=== PATIENT | female | born 1985 | race Caucasian/White ===

== ENCOUNTER 2019-01-30 09:58 | Day surgery (SDC) | payer OTHER ==
[~2019-01-30] VITALS: Ht 152.4 cm; Wt 86.6 kg
[~2019-01-30 09:58] MED LIST: ATOR40TA75 PO; EFFE150C2 PO; HYDR25TAB PO; LEVO50TA5 PO; LR 1,000 ML IV ONE; QC F0.52 PO; XANA2TAB2 PO
[2019-01-30 10:54] LABS: URINE PREG TEST NEGATIVE (NEGATIVE)
[2019-01-30] MEDS ORDERED: PROPOFOL 200 MG/20 ML VIAL As Ordered ONE (12:03)
[2019-01-30] MEDS ORDERED: LIDOCAINE 2% INJ 100 MG/5 ML SDV (FOR ANES.) As Ordered ONE (12:03)
[2019-01-30] MEDS ORDERED: fentaNYL 100 MCG/2 ML INJECTION (J3010) As Ordered ONE (12:03)
[2019-01-30] MEDS ORDERED: MIDAZOLAM INJ 2 MG/2 ML VIAL (J2250) As Ordered ONE (12:03)
[2019-01-30] MEDS ORDERED: ONDANSETRON 4MG/2ML VIAL (J2405) As Ordered ONE (12:34)
[2019-01-30] MEDS ORDERED: KETOROLAC 60 MG/2 ML VIAL (J1885) As Ordered ONE (12:34)
[2019-01-30] MEDS ORDERED: dexameTHASONE 4 MG/ML 1ML VIAL (J1100) As Ordered ONE (12:34)
[2019-01-30] MEDS ORDERED: ONDANSETRON 4MG/2ML VIAL (J2405) IV PRN (13:00)
[2019-01-30] MEDS ORDERED: LR 1,000 ML IV SCH ×2 (13:00→14:00)
[2019-01-30] MEDS ORDERED: METOCLOPRAMIDE INJ 10MG/2ML VIAL (J2765) IV PRN (13:00)
[2019-01-30] MEDS: fentaNYL 100 MCG/2 ML INJECTION (J3010) IV PRN ×4 (13:10→13:25)
[2019-01-30] MEDS: PERCOCET 5MG/325MG TAB PO PRN ×2 (13:10→13:40)
[2019-01-30] MEDS: MEPERIDINE INJ 25 MG/ML VIAL (J2175) IV PRN ×2 (13:50→13:55)
[2019-01-30] MEDS ORDERED: NORCO, ANEXSIA 5/325MG TABLET (HYDROcodone/ACETAMINOPHEN) PO PRN (14:00)
[2019-01-30] MEDS ORDERED: IBUPROFEN 600 MG TAB PO PRN (14:00)
[2019-01-30 15:40] VITALS: BP 126/83
== END 2019-01-30 15:50 | disposition home or self-care (01) ==
LOC: M SDC 09:58
PROVIDERS: ATTEND Obstetrics & Gynecology
DX: R10.2 Pelvic and perineal pain (principal); N93.9 Abnormal uterine and vaginal bleeding, unspecified; E03.9 Hypothyroidism, unspecified; F41.9 Anxiety disorder, unspecified; F32.9 Major depressive disorder, single episode, unspecified; Z79.899 Other long term (current) drug therapy; F17.210 Nicotine dependence, cigarettes, uncomplicated
CPT/HCPCS: 58563; 84703; 88305; J1100; J1885; J2175; J2250; J2405; J3010

== ENCOUNTER → 2019-06-11 | Outpatient (REF) | payer OTHER ==
[~2019-06-11] MED LIST changes: -LR 1,000 ML IV ONE
[2019-06-11 17:30] LABS: APPEARANCE, URINE CLEAR (CLEAR); BACTERIA, URINE AUTO NEGATIVE (NEGATIVE); BILIRUBIN, URINE AUTO NEGATIVE (NEGATIVE); BLOOD, URINE BLOOD NEGATIVE (NEGATIVE); COLOR, URINE STRAW (YELLOW); GLUCOSE, URINE (UA) AUTO NEGATIVE (NEGATIVE); KETONE, URINE AUTO NEGATIVE (NEGATIVE); LEUKOCYTE ESTERASE, URINE AUTO NEGATIVE (NEGATIVE); NITRITE, URINE AUTO NEGATIVE (NEGATIVE); PROTEIN, URINE AUTO NEGATIVE (NEGATIVE); RBC, URINE AUTO 0 /HPF (0-3); SPECIFIC GRAVITY URINE AUTO 1.004 (1.002-1.035); SQUAMOUS EPITHELIAL CELL UR AU 1 /HPF (0-6); UROBILINOGEN, URINE AUTO 0.2 mg/dL (0.0-2.0); WBC, URINE AUTO 0 /HPF (0-3)
== END ==
LOC: M LAB REF 16:51
PROVIDERS: ATTEND Obstetrics & Gynecology
DX: N39.0 Urinary tract infection, site not specified (principal)

== ENCOUNTER → 2019-10-20 | Outpatient (CLI) | payer OTHER ==
[~2019-10-20] MED LIST changes: +ALPR1TAB3 PO; +VENL75CA47 PO
== END ==
LOC: M LABSMTC 11:07
PROVIDERS: ATTEND Anesthesiology
DX: Z01.818 Encounter for other preprocedural examination (principal); Z11.59 Encounter for screening for other viral diseases
CPT/HCPCS: C8903; U0003

== ENCOUNTER 2019-10-23 08:51 | Day surgery (SDC) | payer OTHER ==
[~2019-10-23] VITALS: Ht 152.4 cm; Wt 106.1 kg
[~2019-10-23 08:51] MED LIST changes: -ALPR1TAB3 PO; +LR 1,000 ML IV ONE; -VENL75CA47 PO; +ceFAZolin SOD 2 GM in IV 1 EA IV ONE
[2019-10-23] MEDS ORDERED: LIDOCAINE 2% 100MG/5ML SDV (FOR ANES.) As Ordered ONE (08:56)
[2019-10-23] MEDS ORDERED: fentaNYL 250 MCG/5 ML INJECTION (J3010) As Ordered ONE (08:56)
[2019-10-23] MEDS ORDERED: propofoL 200 MG/20 ML VIAL As Ordered ONE (08:56)
[2019-10-23] MEDS ORDERED: SUCCINYLCHOLINE 100 MG/5 ML SYRINGE (J0330) As Ordered ONE (08:56)
[2019-10-23] MEDS ORDERED: ROCURONIUM BROMIDE 50 MG/5 ML VIAL As Ordered ONE ×3 (08:56→11:57)
[2019-10-23] MEDS ORDERED: MIDAZOLAM INJ 2MG/2ML VIAL (J2250 PER 1MG) As Ordered ONE (08:57)
[2019-10-23 09:59] LABS: HEMATOCRIT 41.7 % (36.0-47.0); HEMOGLOBIN 12.8 g/dl (12.0-15.5); MEAN CORPUSCULAR HEMOGLOBIN 24.6 pg (27.0-33.0); MEAN CORPUSCULAR HGB CONC 30.7 g/dl (32.0-36.5); PLATELET COUNT, AUTOMATED 418 10^3/uL (150-450); RED BLOOD COUNT 5.21 10^6/uL (4.00-5.40); WHITE BLOOD COUNT 13.4 10^3/uL (4.0-10.0)
[2019-10-23] MEDS ORDERED: PHENAZOPYRIDINE 100 MG TAB PO ONE (10:00)
[2019-10-23 10:36] LABS: HCG, SERUM QUALITATIVE NEGATIVE (NEGATIVE)
[2019-10-23] MEDS ORDERED: VECURONIUM BROMIDE 10MG VIAL As Ordered ONE (10:42)
[2019-10-23] MEDS ORDERED: ALBUTEROL 6.7GM INHALER **FOR ANES. CART/OMNICELL ONLY As Ordered ONE (11:21)
[2019-10-23] MEDS ORDERED: dexameTHASONE 4 MG/ML 1ML VIAL (J1100 PER 1MG) As Ordered ONE (11:48)
[2019-10-23] MEDS ORDERED: ACETAMINOPHEN 1000MG 100ML IV BTL (OFIRMEV) (J0131 PER 10MG) As Ordered ONE (11:48)
[2019-10-23] MEDS ORDERED: METOCLOPRAMIDE INJ 10MG/2ML VIAL (J2765 PER 1) As Ordered ONE (11:48)
[2019-10-23] MEDS ORDERED: ONDANSETRON 4MG/2ML VIAL As Ordered ONE (11:48)
[2019-10-23] MEDS ORDERED: KETOROLAC 60 MG/2 ML VIAL As Ordered ONE (11:48)
[2019-10-23] MEDS ORDERED: HYDROmorphone HCL 2 MG/ML 1ML VIAL (J1170) As Ordered ONE (11:49)
[2019-10-23] MEDS ORDERED: SUGAMMADEX SODIUM 500 MG/5 ML VIAL (BRIDION) As Ordered ONE (12:12)
[2019-10-23] MEDS ORDERED: fentaNYL 100 MCG/2 ML INJECTION (J3010) As Ordered ONE ×2 (12:19→13:02)
[2019-10-23] MEDS: fentaNYL 100 MCG/2 ML INJECTION (J3010) IV PRN ×4 (13:05→13:20)
[2019-10-23] MEDS ORDERED: oxyCODONE 5MG TAB PO PRN (13:15)
[2019-10-23] MEDS ORDERED: HYDROMORPHONE HCL 0.5 MG/ 0.5 ML SYRINGE (J1170 PER 1) IV PRN (13:15)
[2019-10-23] MEDS ORDERED: NS 1,000 ML IV SCH (13:15)
[2019-10-23] MEDS ORDERED: EPIDURAL/PCA KEYS XX PRN (13:15)
[2019-10-23] MEDS ORDERED: METOCLOPRAMIDE INJ 10MG/2ML VIAL (J2765 PER 1) IV PRN (13:15)
[2019-10-23] MEDS ORDERED: NALBUPHINE HCL 10 MG/ML AMP (J2300) IV PRN (13:15)
[2019-10-23] MEDS ORDERED: NALOXONE INJ 0.4MG/1ML VIAL (J2310 PER 1MG) IV PRN (13:15)
[2019-10-23] MEDS ORDERED: MORPHINE 1MG/ML IN 0.9% NACL 100ML IV BAG IV PRN (13:15)
[2019-10-23] MEDS ORDERED: diphenhydrAMINE 50MG/ML VIAL (J1200) IV PRN (13:15)
[2019-10-23] MEDS ORDERED: LR 1,000 ML IV SCH (13:15)
[2019-10-23] MEDS ORDERED: ONDANSETRON 4MG/2ML VIAL IV PRN (13:15)
[2019-10-23 15:07] VITALS: BP 111/59
[2019-10-23] MEDS ORDERED: ALPR1TAB3 PO (15:35)
[2019-10-23] MEDS ORDERED: VENL75CA47 PO (15:35)
[2019-10-23 15:44] VITALS: BP 112/60
[2019-10-23 16:44] VITALS: BP 111/60
[2019-10-23] MEDS: LR 1,000 ML IV SCH ×2 (17:25→20:24)
[2019-10-23 17:44] VITALS: BP 112/61
[2019-10-23 18:40] VITALS: BP 133/74
[2019-10-23 20:00] VITALS: BP 129/74
[2019-10-23] MEDS ORDERED: IBUPROFEN 600 MG TAB PO PRN (20:00)
[2019-10-23] MEDS: ALPRAZolam 0.5 MG TAB PO SCH (20:23)
[2019-10-23] MEDS ORDERED: ATORVASTATIN 20 MG TAB PO SCH (21:00)
[2019-10-23] MEDS ORDERED: VENLAFAXINE **XR** 75MG CAPSULE PO SCH (21:00)
[2019-10-23] MEDS ORDERED: LEVOTHYROXINE 50MCG TABLET (0.05MG) PO SCH (21:00)
[2019-10-24 02:00] VITALS: BP_SYST 127; BP_SYST 152; BP_DIAS 68; BP_DIAS 86
[2019-10-24] MEDS: LR 1,000 ML IV SCH (03:20)
[2019-10-24 06:00] VITALS: BP 130/74
[2019-10-24] MEDS ORDERED: LEVOTHYROXINE 50MCG TABLET (0.05MG) PO SCH (06:00)
[2019-10-24] MEDS ORDERED: NORCO, ANEXSIA 5/325MG TABLET (HYDROcodone/ACETAMINOPHEN) PO PRN (06:00)
[2019-10-24 07:01] LABS: HEMATOCRIT 36.4 % (36.0-47.0); HEMOGLOBIN 11.3 g/dl (12.0-15.5); MEAN CORPUSCULAR HEMOGLOBIN 25.2 pg (27.0-33.0); MEAN CORPUSCULAR VOLUME 81.3 fl (80.0-96.0); PLATELET COUNT, AUTOMATED 403 10^3/uL (150-450); RED BLOOD COUNT 4.48 10^6/uL (4.00-5.40); WHITE BLOOD COUNT 20.3 10^3/uL (4.0-10.0)
[2019-10-24] MEDS: ALPRAZolam 0.5 MG TAB PO SCH (08:23)
[2019-10-24] MEDS ORDERED: hydroCHLOROthiazide 25 MG TAB PO SCH (09:00)
--- NOTE | 2019-10-28 14:18 | RO ---
DATE OF PROCEDURE: 10/23/2019 PREOPERATIVE DIAGNOSIS: Pain, bleeding and failed ablation. POSTOPERATIVE DIAGNOSIS: Pain, bleeding, and failed ablation. 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 PROCEDURE: Total abdominal hysterectomy with bilateral salpingectomy. Patient had previous tubal ligation, so of course there is only nubs of tubes left. SURGEON: Dr. Shaniak Up [employer] SUPERVISOR: Agnieszka Albright ANESTHESIA: General endotracheal anesthesia. SPECIMENS: Uterus and tubes, and of course cervix which is part of the uterus. DESCRIPTION OF PROCEDURE: Carola was brought to the operating room where sufficient general endotracheal anesthesia was induced supine. Without us even starting the case she already end tidal pressures of 40. She did not tolerate Trendelenburg despite efforts with bronchodilators, other efforts, and we had not even started the case. I had talked to her about her anatomical congenital anomalies and likelihood that these would create difficulty and so she was consented for open if that became necessary. We had the choice of either wake the patient up and not do the case because she was not tolerating anesthesia or go ahead and convert to open because it certainly was not an option under these circumstances to insufflate the patient and keep her in Trendelenburg for the amount of time likely for normal robotic, much less one with the number of anomalies she was likely at that point that we suspected she had. As a result, a decision was made to convert to open. She had previous vertical from her sections and from some of her reconstructive surgeries and we decided to go ahead and use that because we were concerned that if we did a Pfannenstiel and we were constantly pushing up on the pannus that this too would create more pressure on the chest and again the patient was suboptimally tolerating anesthesia as it was. With this in mind, we went ahead and placed a Posada. I had to place it. The nurse in the room was not able to identify and place a Posada for her. Again, she has anatomical changes and the urethra is considerably anterior to where expected due to where her vaginal orifice is, but a lot of this is because of the reconstruction and the fact that she has a reconstructed vagina. Hence, the previous C-sections and that sort of thing. So her urethra is anterior, but then has to bend posterior and anterior, again, to come around the symphysis, but we did have Pyridium in and we had good return from the Posada when we were just palpating vaginally so that we could guide that urethra as that Posada and not just try to shove it through that urethra because of the angle that it turns. With the Posada placed, I changed gloves and we went ahead and worked up top. Again, she had a vertical incision from her previous surgeries and we were concerned about the amount of pressure we would have to place on the pannus during the case and at this point we were not sure how protracted it would be due to scar tissue, so we went ahead and reused her previous vertical scar. We dissected through the subcutaneous tissues to the level of the rectus fascia and then very carefully dissected through this expecting quite a bit of scarring. She definitely had scarring in the fascia itself and in the peritoneum, but not that much in the peritoneal cavity as feared, certainly some, but there was no bowel stuck right behind the peritoneum. We did go through millimeter by millimeter. I was not able to go through bluntly because she has too much scar tissue, but using the scalpel we just went through very carefully and using the Kochers to elevate the tissues away from the underlying tissues as much as possible. There was omentum that was free immediately beyond the area that we went through and then we were able to of course carefully extend that using the scissors. We were careful inferiorly because there was some scar tissue over the bladder as might be expected, but not as much as feared. We then very carefully tried to maneuver the patient. We packed the bowel away. We did not want to place her in Trendelenburg again because she just was not tolerating that, so we pulled up the uterus using a single tooth tenaculum after I had manually elevated it and identified the stumps of the tubes remaining after previous tubal ligation and normal ovaries. We used long Kellys in the lateral aspects of the uterus and then with Mcclain clamps came over the utero-ovarian suspensory ligaments and the remaining pedicle of the tubes and we used #0 Vicryl sutures throughout this portion of the case, so we clamped those pedicles with Mcclain, cut them, and then tied them with #0 Vicryl suture. We then carefully worked through the broad ligament and over the anterior aspect of the lower uterine segment. There was considerable scarring from her previous C-sections that all had to be dissected sharply, but there did not appear to be any evidence of injury to the bladder and again we had Pyridium for the patient so that we would clearly have a good reason to know. Then we very tight to the uterus using Artem clamps carefully worked our way through the uterine vasculature to the level of the ureterosacral ligaments which were carefully identified, clamped and transected and this was when we did the colpotomy at this level. We tied off those pedicles carefully and completed the colpotomy around the base of the cervix leaving as much of the vagina behind as possible because she had had a reconstructed vagina and it was quite fragile, so we were careful to work down to it rather than trying to pull on it, and carefully close the angles with #0 Vicryl, held them and that of course incorporated the uterosacrals and then closed the mid portion of the vagina with [id number] because that was all that was left. Again, patient has a diminished vaginal caliber after the reconstruction. We then irrigated the pelvis carefully with good hemostasis, removed all packing, etc. Then, did a mask closure using #2-0 PDS on the loop and then for the deeper tissues used the 1 chromic on the turbo needle and then hema for the skin with good approximation and hemostasis at each layer. Again, no evidence of injury of ureters, bladder or of bowel. The procedure was then ended with dry sterile dressing placed. Estimated blood loss for the procedure was about 100 mL. Fluid replacement was crystalloid. Complications: None, other than the patient's initial inability to tolerate the anesthesia and thus the decision to convert to a safer procedure for her, which resulted in better aeration for the case and a shorter case, less time that she needed to tolerate anesthesia. But the surgery itself since we started open, that part was uncomplicated. Condition and Disposition: As already noted, she did not tolerate it well. She did not tolerate anesthesia well at all, but she did manage to tolerate the anesthesia and did not have any worsening during the case itself and was recovering in the recovery room in stable condition.
== END 2019-10-24 09:35 | disposition home or self-care (01) ==
LOC: M SDC 08:51 → M MS5PR 14:00 → M SDC 10-24 09:35
PROVIDERS: ATTEND Obstetrics & Gynecology
DX: R10.2 Pelvic and perineal pain (principal); N92.0 Excessive and frequent menstruation with regular cycle; N72 Inflammatory disease of cervix uteri; D25.9 Leiomyoma of uterus, unspecified; E03.9 Hypothyroidism, unspecified; E78.5 Hyperlipidemia, unspecified; F17.218 Nicotine dependence, cigarettes, with other nicotine-induced disorders; F41.9 Anxiety disorder, unspecified; F32.9 Major depressive disorder, single episode, unspecified; Z79.899 Other long term (current) drug therapy; Z88.5 Allergy status to narcotic agent
CPT/HCPCS: 36415; 58150; 84703; 85027; 86850; 86900; 86901; 88307; 96360; 96361; J0131; J0330; J0690; J1100; J1170; J1885; J2250; J2405; J2765; J3010

== ENCOUNTER 2021-04-14 19:37 | Emergency (ER) | payer OTHER ==
[~2021-04-14] VITALS: Ht 152.4 cm; Wt 105.9 kg
[~2021-04-14 19:37] MED LIST changes: +ALPR1TAB3 PO; +HYDR-3490 PO; -HYDR25TAB PO; -LR 1,000 ML IV ONE; +VENL75CA47 PO; -ceFAZolin SOD 2 GM in IV 1 EA IV ONE
[2021-04-14 19:38] VITALS: BP 159/75
[2021-04-14] MEDS ORDERED: VENL150C43 (19:49)
[2021-04-14] MEDS ORDERED: CEPH500C (19:49)
[2021-04-14] MEDS ORDERED: OMEP-218 (19:49)
[2021-04-14] MEDS ORDERED: ERGO500029 (19:49)
== END 2021-04-15 00:43 | disposition left against medical advice (07) ==
LOC: M ED 19:37
DX: Z53.21 Procedure and treatment not carried out due to patient leaving prior to being seen by health care provider (principal)